=== PATIENT | male | born 2000 | race Caucasian/White ===

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

== ENCOUNTER 2022-03-13 23:45 | Emergency (ER) | payer OTHER ==
[~2022-03-13] VITALS: Ht 180.3 cm; Wt 72.7 kg
[2022-03-14] MEDS ORDERED: AMOX-100 PO (02:10)
[2022-03-14 02:19] VITALS: BP 124/78
== END 2022-03-14 02:21 | disposition home or self-care (01) ==
LOC: ER 23:45
DX: H66.92 Otitis media, unspecified, left ear (principal); Z79.2 Long term (current) use of antibiotics
CPT/HCPCS: 99283